=== PATIENT | female | born 1950 | race Caucasian/White ===

== ENCOUNTER 2018-04-10 16:42 | Emergency (ER) | payer MEDICARE ==
[2018-04-10 17:02] VITALS: BP 151/79
--- NOTE | 2018-04-10 17:47 | UC ---
Bite Injury/Animal HPI - HPI Summary HPI Summary: Has noticed a tick upper L breast. feels it has been there for appro 1 wk but not engorged. she removed herself and left the head in. here for removal. denies any other symptoms aside from site irritation and pain. - History of Current Complaint Chief Complaint: UCSkin Stated Complaint: TICK Time Seen by Provider: 04/10/18 17:26 Hx Obtained From: Patient Hx Last Menstrual Period: "years ago." ?: No Pain Intensity: 3 Onset/Duration: Gradual Onset - Allergies/Home Medications Allergies/Adverse Reactions: Allergies Allergy/AdvReac Type Severity Reaction Status Date / Time divalproex sodium Allergy Unknown Unknown Verified 04/10/18 17:04 [From Depakote] Reaction Details lamotrigine [From Lamictal] Allergy Rash Verified 04/10/18 17:04 oxycodone Allergy Rash Verified 04/10/18 17:04 Penicillins Allergy GI Upset Verified 04/10/18 17:04 phenytoin [From Dilantin] Allergy Unknown Verified 04/10/18 17:04 Reaction Details Home Medications: Home Medications Ascorbic Acid TAB* [Vitamin C TAB*] 2,000 mg PO DAILY 04/10/18 [History Confirmed 04/10/18] Calcium Complex* 04/10/18 [History] DULoxetine DR CAP* [Cymbalta CAP*] 20 mg PO DAILY 04/10/18 [History Confirmed ] Dronabinol CAP* [Marinol CAP*] 5 - 10 mg PO BID 04/10/18 [History Confirmed 01/18] Glucosamine Sulfate Dipot Chlr [Glucosamine] 04/10/18 [History] Immunity* 04/10/18 [History] Magnesium Glycinate [Mag Glycinate] 400 mg PO DAILY 04/10/18 [History Confirmed 04/10/18] PMH/Surg Hx/FS Hx/Imm Hx Previously Healthy: No - currently on azithromycin for a cough Other History Of: Negative For: HIV, Hepatitis B, Hepatitis C - Surgical History Surgical History: Yes Surgery Procedure, Year, and Place: craniotomy for aneurysm 2001, [place]. cataract removal bilateral, [facility] [place]. 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 Tonsillectomy at age 6. carpal tunnel bilat. BILATERAL CARPAL TUNNEL RELEASE, [facility] - Family History Known Family History: Positive: None, Unknown Negative: Renal Disease, Blood Disorder - Social History Alcohol Use: Occasionally Substance Use Type: Marijuana Substance Use Comment - Amount & Last Used: occasionally Smoking Status (MU): Never Smoked Tobacco Have You Smoked in the Last Year: No - Immunization History Vaccination Up to Date: Yes Review of Systems All Other Systems Reviewed And Are Negative: Yes Constitutional: Positive: Negative Skin: Positive: Other - L upper breast tick bite Musculoskeletal: Positive: Negative Is Patient Immunocompromised?: No Physical Exam Triage Information Reviewed: Yes Appearance: Well-Appearing Vital Signs: Initial Vital Signs Temp 97.5 F 04/10/18 16:52 Pulse 58 04/10/18 16:52 Resp 16 04/10/18 16:52 BP 151/79 04/10/18 16:52 Pulse Ox 100 04/10/18 16:52 Vital Signs Reviewed: Yes Skin: Positive: Other - L upper breast has small pin point area where tick head was left after a tick removal she did. nontender. tried best attempt at removal with success but unclear if a very tiny piece left. Bite Injury Course/Dx - Course Course Of Treatment: tick head removal at L upper breast. she is currently on azithro for a diff. illness. best attempt at removal w/ success but unclear if a very small piece left. - Differential Dx/Diagnosis Differential Diagnosis/HQI/PQRI: Envenomation, Other - tick bite Provider Diagnoses: tick bite, removal Discharge - Sign-Out/Discharge Documenting (check all that apply): Patient Departure All imaging exams completed and their final reports reviewed: No Studies - Discharge Plan Condition: Good Disposition: HOME Patient Education Materials: Tick Bite (ED) Referrals: Elliot Zuniga MD [Primary Care Provider] - Additional Instructions: please return if redness, new symptoms like joint pain or fever develop. also should see pcp for elevated blood pressure - Billing Disposition and Condition Condition: GOOD Disposition: Home
== END 2018-04-10 18:00 | disposition home or self-care (01) ==
LOC: UCEAST 16:42
DX: T63.481A Toxic effect of venom of other arthropod, accidental (unintentional), initial encounter (principal); Y92.9 Unspecified place or not applicable; Z88.0 Allergy status to penicillin
CPT/HCPCS: 99212; G0463

== ENCOUNTER 2018-09-06 20:07 | Emergency (ER) | payer MEDICARE ==
[2018-09-06 20:19] VITALS: BP 128/65
--- NOTE | 2018-09-06 20:39 | UC ---
Skin Complaint HPI - HPI Summary HPI Summary: C/O 2 tick bites. Completely removed the ticks. Sites are red and itchy. Ticks were not engorged. - History of Current Complaint Chief Complaint: UCSkin Stated Complaint: TICK BITE Hx Last Menstrual Period: "years ago." Onset/Duration: Sudden Onset, Lasting Days - 1 Skin Exposure Onset/Duration: Days Ago - 1 Timing: Constant Onset Severity: Mild Current Severity: Mild Pain Intensity: 0 Location: Other - Trunk Aggravating Factor(s): Nothing Alleviating Factor(s): Nothing Associated Signs & Symptoms: Positive: Negative Related History: Insect Bite/Sting - tick bites. - Allergy/Home Medications Allergies/Adverse Reactions: Allergies Allergy/AdvReac Type Severity Reaction Status Date / Time divalproex sodium Allergy Unknown Unknown Verified 09/06/18 20:19 [From Depakote] Reaction Details lamotrigine [From Lamictal] Allergy Rash Verified 09/06/18 20:19 oxycodone Allergy Rash Verified 09/06/18 20:19 Penicillins Allergy GI Upset Verified 09/06/18 20:19 phenytoin [From Dilantin] Allergy Unknown Verified 09/06/18 20:19 Reaction Details Home Medications: Home Medications Amitriptyline TAB* [Elavil TAB*] 09/06/18 [History] Medical Marijuana* 09/06/18 [History] PMH/Surg Hx/FS Hx/Imm Hx Cardiovascular History: Hypertension Respiratory History: Asthma Other History Of: Negative For: HIV, Hepatitis B, Hepatitis C - Surgical History Surgical History: Yes Surgery Procedure, Year, and Place: craniotomy for aneurysm 2001, [place]. cataract removal bilateral, [facility]. 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 Tonsillectomy at age 6,. BILATERAL CARPAL TUNNEL RELEASE, [facility] - Family History Known Family History: Positive: Hypertension Negative: Renal Disease, Blood Disorder - Social History Occupation: Retired Lives: Alone Alcohol Use: Occasionally Substance Use Type: None Substance Use Comment - Amount & Last Used: occasionally Smoking Status (MU): Never Smoked Tobacco Have You Smoked in the Last Year: No - Immunization History Vaccination Up to Date: Yes Review of Systems All Other Systems Reviewed And Are Negative: Yes Skin: Positive: Other - tick bites Is Patient Immunocompromised?: No Physical Exam Triage Information Reviewed: Yes Appearance: Well-Appearing, No Pain Distress, Well-Nourished Vital Signs: Initial Vital Signs Temp 97.3 F 09/06/18 20:09 Pulse 70 09/06/18 20:09 Resp 16 09/06/18 20:09 BP 128/65 09/06/18 20:09 Pulse Ox 97 09/06/18 20:09 Vital Signs Reviewed: Yes Eyes: Positive: Conjunctiva Clear Neck exam: Normal Respiratory Exam: Normal Cardiovascular Exam: Normal Musculoskeletal Exam: Normal Neurological Exam: Normal Psychological Exam: Normal Skin: Positive: Other - tick bites on the back. Images Front/Back of Body, Lg ([place]): 1 - tick bite 2 - tick bite Course/Dx - Differential Diagnoses - Skin Complaint Differential Diagnoses: Cellulitis, Contact Dermatitis, Tick Born Illness - Diagnoses Provider Diagnosis: Tick bite of back Discharge - Sign-Out/Discharge Documenting (check all that apply): Patient Departure All imaging exams completed and their final reports reviewed: No Studies - Discharge Plan Condition: Stable Disposition: HOME Patient Education Materials: Tick Bite (ED) Referrals: Cydnee Tran MD [Primary Care Provider] - - Billing Disposition and Condition Condition: STABLE Disposition: Home
== END 2018-09-06 20:59 | disposition home or self-care (01) ==
LOC: UCEAST 20:07
DX: S20.462A Insect bite (nonvenomous) of left back wall of thorax, initial encounter (principal); S20.461A Insect bite (nonvenomous) of right back wall of thorax, initial encounter; J45.909 Unspecified asthma, uncomplicated; I10 Essential (primary) hypertension; Z88.0 Allergy status to penicillin; Z88.5 Allergy status to narcotic agent; Z88.8 Allergy status to other drugs, medicaments and biological substances; W57.XXXA Bitten or stung by nonvenomous insect and other nonvenomous arthropods, initial encounter; Y92.9 Unspecified place or not applicable
CPT/HCPCS: 99211; G0463

== ENCOUNTER 2024-06-01 10:50 | Observation (INO) ==
[2024-06-01 11:29] LABS: ABS Basophils 0.1 10^3/uL (0.0-0.1); ABS Eosinophils 0.3 10^3/uL (0.0-0.5); ABS Lymphocytes 1.1 10^3/uL (1.0-4.8); ABS Monocytes 0.5 10^3/uL (0.0-0.9); ABS Neutrophils 4.7 10^3/uL (1.5-7.6); ABS Nucleated RBC 0.01 10^3/ul; Eosinophil % 4.3 %; Hematocrit 42.2 % (35-45); Hemoglobin 14.3 g/dL (11.5-14.3); Lymphocyte % 16.5 %; Mean Corpuscular Hemoglobin 32.1 pg (27-33); Mean Corpuscular Hgb Conc 33.8 g/dL (31-36); Mean Corpuscular Volume 94.8 fL (80-97); Mean Platelet Volume 8.3 fL (7.5-11.2); Nucleated Red Blood Cells % 0.1 %/100WBC (0.0-0.8); Platelet Count 229 10^3/uL (150-450); Red Blood Count 4.45 10^6/uL (3.63-4.92); Red Cell Distribution Width 13.5 % (12-17); White Blood Count 6.7 10^3/uL (3.8-11.8)
[2024-06-01 11:36] LABS: INR 0.88 (0.85-1.14)
[2024-06-01 11:50] LABS: Albumin 4.3 g/dL (3.5-5.7); Albumin/Globulin Ratio 1.8 (1-3); Creatinine, Serum 0.77 mg/dL (0.51-0.95); Globulin 2.4 g/dL (2-4); Potassium 4.1 mmol/L (3.5-5.0); Total Bilirubin 0.5 mg/dL (0.2-1.0); Total Protein 6.7 g/dL (6.4-8.9); eGFR CKD-EPI 81.4 (>60)
[2024-06-01] MEDS: Iohexol 350 (CONTRAST) 500 ML MDV IV ONE (12:32)
[2024-06-01 13:02] LABS: High Sensitivity Troponin 1 Hr 3 pg/mL (<15)
[2024-06-01 13:35] LABS: Urine Appearance Turbid; Urine Bilirubin Negative (Negative); Urine Blood Trace (Negative); Urine Color Colorless; Urine Glucose Negative (Negative); Urine Ketones Negative (Negative); Urine Nitrite Negative (Negative); Urine Protein Negative (Negative); Urine Specific Gravity 1.009 (1.002-1.030); Urine Urobilinogen Negative (Negative)
[2024-06-01 13:42] LABS: Urine Bacteria Absent /HPF (Absent); Urine Red Blood Cell Absent /HPF (0-Trace); Urine Squamous Epithelial Cell Present /HPF (Absent); Urine White Blood Cell Trace(0-5/hpf) /HPF (0-Trace)
[2024-06-01] MEDS ORDERED: Sulfur Hexaflouride MICROSPHR 25 MG VIAL IV PRN (15:34)
[2024-06-01] MEDS: Enoxaparin 40 MG/0.4 ML SYR SUBCUT SCH (17:09)
[2024-06-01 21:38] LABS: HDL Cholesterol 74.1 mg/dL
[2024-06-02 13:54] VITALS: BP 135/78
== END 2024-06-02 14:41 | disposition home or self-care (01) ==
LOC: EDHOLD 10:50 → ED 10:50 → MEDTELE 21:40
PROVIDERS: ADMIT Internal Medicine; ATTEND Internal Medicine